=== PATIENT | male | born 1985 | race Caucasian/White ===

== ENCOUNTER 2017-05-12 21:35 | Emergency (ER) | payer OTHER ==
[~2017-05-12] VITALS: Ht 170.2 cm; Wt 104.3 kg
[~2017-05-12 21:35] MED LIST: FLEXERIL PO; HYDROCODONE-AP1 EAC6 PO; HYDROCODONE-APA1 TA1 PO; NAPROSYN500 MG PO; NORCO 5-325 TA1 EAC1 PO; NORCO 5-325 TA1 EACH PO; ONDANSETRON HCL4 M2 PO; PEPCID20 MG PO; ROBAXIN 750 MG750 M1 PO; VENTOLIN HFA 1818 GM; ZOFRAN ODT4 MG PO
[2017-05-12] MEDS ORDERED: NAPROSYN500 MG PO (22:20)
[2017-05-12] MEDS ORDERED: PREDNISONE 10 M10 MG PO (22:20)
[2017-05-12] MEDS ORDERED: NORCO 5-325 TA1 EACH PO ×2 (22:20→22:46)
[2017-05-12] MEDS ORDERED: FLEXERIL PO (22:20)
[2017-05-12 22:54] VITALS: BP 118/81
== END 2017-05-12 22:54 | disposition home or self-care (01) ==
LOC: M.ERS 21:35
DX: M54.42 Lumbago with sciatica, left side (principal); J45.909 Unspecified asthma, uncomplicated; F17.210 Nicotine dependence, cigarettes, uncomplicated; Z98.890 Other specified postprocedural states; Z88.5 Allergy status to narcotic agent

== ENCOUNTER 2017-06-16 17:32 | Emergency (ER) | payer OTHER ==
[~2017-06-16] VITALS: Ht 170.2 cm; Wt 104.3 kg
[~2017-06-16 17:32] MED LIST changes: +PREDNISONE 10 M10 MG PO
[2017-06-16] MEDS ORDERED: PEPCID AC20 MG PO (18:05)
[2017-06-16] MEDS ORDERED: NORCO 5-325 TA1 EACH PO (18:27)
[2017-06-16] MEDS ORDERED: FLEXERIL PO (18:33)
[2017-06-16 18:35] VITALS: BP 142/89
== END 2017-06-16 18:36 | disposition home or self-care (01) ==
LOC: M.ERS 17:32
DX: M54.5 Low back pain (principal); J45.909 Unspecified asthma, uncomplicated; F17.210 Nicotine dependence, cigarettes, uncomplicated; Z88.5 Allergy status to narcotic agent; Z88.6 Allergy status to analgesic agent

== ENCOUNTER 2017-12-02 12:08 | Emergency (ER) | payer OTHER ==
[~2017-12-02] VITALS: Ht 170.2 cm; Wt 99.1 kg
[~2017-12-02 12:08] MED LIST changes: +PEPCID AC20 MG PO
[2017-12-02] MEDS ORDERED: ROBAXIN 750 MG750 M1 PO (12:51)
[2017-12-02] MEDS ORDERED: IBUPROFEN 800800 M1 PO (12:51)
[2017-12-02 13:01] VITALS: BP 123/72
== END 2017-12-02 13:02 | disposition home or self-care (01) ==
LOC: M.ERS 12:08
DX: M25.552 Pain in left hip (principal); J45.909 Unspecified asthma, uncomplicated; F17.210 Nicotine dependence, cigarettes, uncomplicated; Z88.5 Allergy status to narcotic agent; Z88.6 Allergy status to analgesic agent

== ENCOUNTER 2020-05-18 21:15 | Emergency (ER) | payer OTHER ==
[~2020-05-18] VITALS: Ht 170.2 cm; Wt 102.1 kg
[~2020-05-18 21:15] MED LIST changes: +IBUPROFEN 800800 M1 PO
[2020-05-18] MEDS ORDERED: OMEPRAZOLE40 MG PO (21:51)
[2020-05-18] MEDS ORDERED: TIZANIDINE HCL4 M1 PO ×2 (21:52→23:03)
[2020-05-18] MEDS ORDERED: NEURONTIN 300M300 M2 PO (23:03)
[2020-05-18] MEDS ORDERED: RELAFEN750 M1 PO (23:03)
[2020-05-19 00:11] VITALS: BP 129/88
== END 2020-05-19 00:14 | disposition home or self-care (01) ==
LOC: M.ERS 21:15
DX: M54.16 Radiculopathy, lumbar region (principal); M96.1 Postlaminectomy syndrome, not elsewhere classified; J45.909 Unspecified asthma, uncomplicated; F17.210 Nicotine dependence, cigarettes, uncomplicated

== ENCOUNTER 2021-05-12 17:54 | Emergency (ER) | payer OTHER ==
[~2021-05-12] VITALS: Ht 170.2 cm; Wt 104.3 kg
[~2021-05-12 17:54] MED LIST changes: +NEURONTIN 300M300 M2 PO; +OMEPRAZOLE40 MG PO; +RELAFEN750 M1 PO; +TIZANIDINE HCL4 M1 PO
[2021-05-12 19:02] LABS: URINE BILIRUBIN NEGATIVE (Negative); URINE BLOOD NEGATIVE (Negative); URINE CLARITY CLEAR; URINE COLOR YELLOW; URINE GLUCOSE-RANDOM NEGATIVE (Negative); URINE KETONES TRACE (Negative); URINE LEUKOCYTES NEGATIVE (Negative); URINE NITRITE NEGATIVE (Negative); URINE PROTEIN NEGATIVE (Negative); URINE UROBILINOGEN 0.2 E.U./dl (0.2-1.0)
[2021-05-12 19:03] LABS: ABSOLUTE BASOPHILS 0.1 thou/uL (0.0-0.2); ABSOLUTE EOSINOPHILS 0.4 thou/uL (0.0-0.7); ABSOLUTE LYMPHOCYTES 2.6 thou/uL (0.8-5.3); ABSOLUTE MONOCYTES 0.5 thou/uL (0.0-1.2); ABSOLUTE NEUTROPHILS 3.1 thou/uL (1.6-8.1); BASOPHILS 1.2 %; EOSINOPHILS 6.6 %; HEMATOCRIT 49.5 % (42.0-52.0); HEMOGLOBIN 17.3 gm/dL (14.0-18.0); LYMPHOCYTES 38.9 %; MCH 31.9 pg (26.0-34.0); MCV 91.2 fL (80.0-100.0); MONOCYTES 7.1 %; MPV 9.3 fl. (7.2-11.1); NUCLEATED RBCS 0 /100WBC; PLATELET COUNT* 179 thou/uL (150-400); POLYS 46.2 %; RBC 5.42 mil/uL (4.50-6.00); RDW-CV 13.5 % (10.5-14.5); WBC 6.7 thou/uL (4.0-11.0)
[2021-05-12 19:15] LABS: ANION GAP 13 mmol/L (7-16); BUN 13 mg/dL (7-18); CALCIUM 8.2 mg/dL (8.5-10.1); CHLORIDE 103 mmol/L (98-107); CO2 23 mmol/L (21-32); CREATININE 1.2 mg/dL (0.6-1.3); GLUCOSE 108 mg/dL (70-99); POTASSIUM 3.8 mmol/L (3.5-5.1); SODIUM 139 mmol/L (136-145)
[2021-05-12 19:20] LABS: ALBUMIN 3.8 g/dL (3.4-5.0); ALKALINE PHOSPHATASE 75 U/L (46-116); TOTAL BILIRUBIN 0.5 mg/dL (<0.1-1.0); TOTAL PROTEIN 7.6 g/dL (6.4-8.2)
[2021-05-12] MEDS ORDERED: MEDROLDOSEPACK PO (19:46)
[2021-05-12] MEDS ORDERED: FLEXERIL PO (19:51)
[2021-05-12 20:01] VITALS: BP 120/79
[2021-05-12 20:43] LABS: SGPT 12 U/L (30-65)
[2021-05-12 20:44] LABS: SGOT < 5 U/L (15-37)
== END 2021-05-12 20:01 | disposition home or self-care (01) ==
LOC: M.ERS 17:54
PROVIDERS: Student in an Organized Health Care Education/Training Program
DX: M54.59 Other low back pain (principal); J45.909 Unspecified asthma, uncomplicated; F17.210 Nicotine dependence, cigarettes, uncomplicated; Z90.49 Acquired absence of other specified parts of digestive tract; Z79.899 Other long term (current) drug therapy; Z88.5 Allergy status to narcotic agent